=== PATIENT | female | born 1970 | race Caucasian/White ===

== ENCOUNTER → 2020-03-03 07:29 | Outpatient (CLI) | payer BC ==
[2020-03-03 08:07] LABS: BASOPHILS 0.5 % (0-2); EOSINOPHILS 2.8 % (0-7); HEMATOCRIT 44.9 % (36.0-48.0); HEMOGLOBIN 14.5 g/dL (12-16); IMMATURE GRANULOCYTES 0.2 % (0-5); LYMPHOCYTES 34.7 % (15-50); MCH 31.7 pg (26.0-34.0); MCHC 32.3 g/dL (31.0-37.0); MCV 98.2 fL (80.0-100.0); MEAN PLATELET VOLUME 12.3 fL (7.4-10.4); MONOCYTES 9.7 % (2-11); NEUTROPHILS 52.1 % (40-80); PLATELET COUNT 175 10x3/uL (130-400); RBC 4.57 10x6/uL (4.00-5.40); RDW 12.4 % (11.5-14.5); WBC 4.3 10x3/uL (4.8-10.8)
[2020-03-03 08:15] LABS: APTT 29.6 SECONDS (22.8-39.4); INR 0.93 (0.85-1.17); PROTIME 12.4 SECONDS (11.6-15.0)
[2020-03-03 08:18] LABS: % SATURATION 39 % (15-55); IRON 140 ug/dl (35-150); TOTAL IRON BIND CAPACITY 354 ug/dl (260-445); UNSAT IRON BIND CAPACITY 214 ug/dl (150-375)
[2020-03-03 08:25] LABS: ALBUMIN 3.4 g/dL (3.4-5.0); BILIRUBIN - DIRECT 0.25 mg/dL (0.00-0.30); BILIRUBIN - INDIRECT 0.48 mg/dL (0.00-1.00); BILIRUBIN - TOTAL 0.73 mg/dL (0.2-1.3); PROTEIN - SERUM 7.7 g/dL (6.4-8.2)
[2020-03-04 10:08] LABS: HAPTOGLOBIN 77 mg/dL (42-296)
[2020-03-05 14:08] LABS: MITOCHONDRIAL ANTIBODY <20.0 Units (0.0-20.0); SMOOTH MUSCLE ABS (ACTIN) 6 Units (0-19)
== END | disposition home or self-care (01) ==
LOC: D.LAB 07:29 → D.US 08:00
PROVIDERS: ATTEND Internal Medicine Gastroenterology
DX: R74.8 Abnormal levels of other serum enzymes (principal)

== ENCOUNTER 2020-03-26 08:38 | Outpatient (CLI) | payer BC ==
[~2020-03-26] VITALS: Ht 162.6 cm; Wt 90.0 kg
[2020-03-26 08:53] LABS: BASOPHILS 1.4 % (0-2); EOSINOPHILS 2.4 % (0-7); HEMATOCRIT 43.3 % (36.0-48.0); HEMOGLOBIN 14.2 g/dL (12-16); LYMPHOCYTES 42.3 % (15-50); MCH 32.2 pg (26.0-34.0); MCHC 32.8 g/dL (31.0-37.0); MCV 98.2 fL (80.0-100.0); MEAN PLATELET VOLUME 12.1 fL (7.4-10.4); MONOCYTES 11.7 % (2-11); NEUTROPHILS 42.2 % (40-80); PLATELET COUNT 163 10x3/uL (130-400); RBC 4.41 10x6/uL (4.00-5.40); RDW 12.1 % (11.5-14.5); WBC 3.7 10x3/uL (4.8-10.8)
[2020-03-26 09:06] LABS: APTT 30.3 SECONDS (22.8-39.4); INR 0.96 (0.85-1.17); PROTIME 12.8 SECONDS (11.6-15.0)
[2020-03-26 09:08] LABS: ALBUMIN 3.6 g/dL (3.4-5.0); ANION GAP 9.9 mmol/L (8-16); BILIRUBIN - TOTAL 0.7 mg/dL (0.2-1.3); CALCIUM 8.8 mg/dL (8.5-10.1); POTASSIUM - SERUM 3.9 mmol/L (3.5-5.1); PROTEIN - SERUM 7.7 g/dL (6.4-8.2)
[2020-03-26] MEDS ORDERED: VITAMIN D1000 UNI1 PO (09:33)
[2020-03-26] MEDS ORDERED: ESTRACE1 MG PO (09:34)
[2020-03-26] MEDS ORDERED: PROTONIX40 MG PO (09:34)
[2020-03-26] MEDS ORDERED: TRINTELLIX5 MG PO (09:34)
[2020-03-26] MEDS ORDERED: FISH OIL 1,0001 CA1 PO (09:34)
[2020-03-26] MEDS ORDERED: CELEXA10 MG PO (09:53)
[2020-03-26] MEDS ORDERED: AMBIEN5 MG PO (09:54)
[2020-03-26 10:05] VITALS: BP 123/69; Ht 162.6 cm; Wt 90.0 kg
--- NOTE | 2020-03-26 17:11 | NUR ---
1534- REPORTS PAIN TO INCISIONAL SITE AND DOWN TO LOWER QUAD. 4/10 AND WHEN TAKES A DEEP BREATHE. PER MD ORDERS ADMINISTERED NORCO 5/325MG 1 BY MOUTH.
--- NOTE | 2020-03-26 17:29 | NUR ---
9337-ALFREDA IZAGUIRRE, RN [employer] CONTACTED SPECIALS NURSE LASHELL ARREDONDO,RN REGARDING PAIN TO LOWER ABD, HYPOTENSION, AND PT REPORTS HARD TO TAKE DEEP BRETH. NEW ORDERS FROM DR LENTZ FOR CT SCAN.
--- NOTE | 2020-03-26 17:31 | NUR ---
1655-PT REPORTS PAIN DECREASED 2/10. CONTINUE TO HAVE LOW BLOOD PRESSURE. DENIES ANY OTHER SYMPTOMS, NO NAUSEA OR DIZZINESS. PULSE WNL AT 69 REGULAR.
--- NOTE | 2020-03-26 17:32 | NUR ---
9365-CALL RECEIVED FROM SPECIALS NURSE LASHELL ARREDONDO RN. CT SCAN NORMAL.
--- NOTE | 2020-03-26 17:32 | NUR ---
1710- DR LENTZ AND SPECIALS NURSE LASHELL ARREDONDO RN TO ROOM 2510. ORDER'S PT IS ABLE TO GO HOME.
--- NOTE | 2020-03-26 17:33 | NUR ---
1715-REVIEWED DISCHARGE ORDERS. VERBALIZED UNDERSTANDING. VITALS RECORDED ON POST PROCEDURE CHECKLIST.
--- NOTE | 2020-03-26 17:38 | NUR ---
1725-ESCORTED OUT VIA W/C WITH FRIEND AWAITING TO TRANSPORT HOME
== END 2020-03-26 17:25 | disposition home or self-care (01) ==
LOC: D.SP 08:38 → D.CT 11:00 → D.SP 17:25
PROVIDERS: General Practice; ATTEND Internal Medicine Gastroenterology
DX: R74.0 Nonspecific elevation of levels of transaminase and lactic acid dehydrogenase [LDH] (principal); R12 Heartburn; R11.0 Nausea; K59.00 Constipation, unspecified; Z80.0 Family history of malignant neoplasm of digestive organs